=== PATIENT | female | born 1980 | race Caucasian/White ===

== ENCOUNTER → 2017-11-24 14:12 | Outpatient (CLI) | payer OTHER, SELFPAY ==
[2017-11-24 14:58] LABS: Add Manual Diff / Slide Review NO; Basophils Percent Auto 1.1 % (0-2); Eosinophils Percent Auto 3.8 % (2-4); Hematocrit 35.3 % (36-46); Hemoglobin 12.2 g/dL (12.0-16.0); Lymphocytes Percent Auto 34.9 % (25-40); Mean Corpuscular HGB Conc 34.5 % (30-36); Mean Corpuscular Hemoglobin 30.6 PG (26-34); Mean Corpuscular Volume 88.7 fL (80-100); Monocytes Percent Auto 6.7 % (3-14); Neutrophils Absolute Auto 3600 /uL (3000-5900); Neutrophils Percent Auto 53.5 % (50-75); Platelet Count 299 X10^3/uL (150-400); Red Blood Cell Count 3.98 X10^6/uL (4.0-5.2); Red Cell Distribution Width 13.1 % (11.6-14.8); White Blood Cell Count 6.8 X10^3/uL (4.5-11.0)
== END ==
PROVIDERS: Family Provider Registered Nurse Diabetes Educator; Visit Provider Obstetrics & Gynecology
DX: N93.9 Abnormal uterine and vaginal bleeding, unspecified (principal); R10.2 Pelvic and perineal pain
CPT/HCPCS: 36415; 85025; 86850; 86900; 86901

== ENCOUNTER 2017-11-28 06:54 | Inpatient (IN) | payer OTHER, SELFPAY ==
[2017-11-23 09:14] VITALS: BMI 27.8
[2017-11-28] VITALS (15 sets, daily range): BP systolic 100–123; BP diastolic 52–87; PULSE 65–104; RESP 12–20; TEMP 36.2–36.9; O2SAT 96–100; BMI 27.8
[2017-11-28] MEDS: LACTATED RINGERS 1,000 ML 42 ML IV ×2 (07:48→10:40)
--- NOTE | 2017-11-28 07:52 | PM.PREOP ---
Pre-operative Note Interval Note Pre-op Check: History & Physical Reviewed by Physician
[2017-11-28] MEDS: CEFAZOLIN 2 GM/100 ML FROZ.PIGGY IV (08:05)
--- NOTE | 2017-11-28 09:16 | SUR.OPER ---
Lithotomy on padded OR bed. [place] Pad Positioner under torso. Head on pillow, arms padded and tucked at sides. Legs secured in padded yellow fin stirrups.
[2017-11-28] MEDS: BUPIVACAINE 0.25% (PF) 30 ML VIAL INJ (09:27)
[2017-11-28] MEDS: LIDOCAINE 1% W/EPI INJ 20 ML INJ (09:41)
[2017-11-28] MEDS: ACETAMINOPHEN IV 1,000 MG/100 ML VIAL 400 MG IV (09:45)
[2017-11-28] MEDS: METHYLENE BLUE 50 MG/10 ML VIAL 60 MG IV (10:58)
--- NOTE | 2017-11-28 11:56 | PM.GYNOP.1 ---
Operative Date/Time/Diagnoses - Date of procedure: 11/28/17 Time of procedure: 08:00 Pre-op diagnosis: Chronic pelvic pain, abnormal uterine bleeding Post-op diagnosis: other (Chronic pelvic pain, abnormal uterine bleeding, pelvic adhesions) Procedure: Procedures Operation Date: 11/28/17 07:45 Actual Procedures Side Surgeon p Laparoscopic Assisted Vag Hysterectomy with lysis of adhesions Shantelle Casillas MD s Cystoscopy Rigid Shantelle Casillas MD Indications: The patient is a 36-year-old 2 para 2 para 2 female here for laparoscopic-assisted vaginal hysterectomy for definitive surgical management of chronic pelvic pain and menorrhagia. She has been using the Essure for tubal sterilization since September 2013 and had a confirmatory hysterosalpingogram that noted bilateral tubal occlusion. Since the Essure placement, she has noted progressively worsening left lower quadrant pain and worsening menses. Currently pain occurs daily at the left lower quadrant (intensity 3/10) but is worse for several days around ovulation and menses (intensity up to 5/10). She manages pain with Motrin 800 mg b.i.d. and laying down. Menses have become heavier and longer. She has to use 2 tampons and a long super pad on her heaviest days and bleeds for 10 days. In October 2014, she had an episode of severe, prolonged bleeding that required inpatient intravenous iron and medical therapy. However, she denies a history of anemia or need for transfusion in the past. Recent pelvic sonogram was not demonstrative of a source of her pain. Prior to Essure, she reports her cycles are regular and manageable off control since menarche. Additionally, she feels increased moodiness and inability to lose weight despite adequate exercise over the last 3-4 years and wonders if this may also be related to the Essure. She has no history of cervical dysplasia or cervical abnormalities. Surgeon: Shantelle Casillas Editing Computer Publisher: Nikolas Ross Anesthesia Type: General and Local Operative Notes Findings: Exam under anesthesia: The uterus was approximately 8 weeks in size and anteverted. No adnexal masses were palpable. Moderate uterine descent was noted with bimanual exam. Laparoscopic findings: An omental adhesion was noted to the anterior peritoneum just above the level of the umbilicus. There was also an omental adhesion to the left ovary and left pelvic sidewall overlying the left fallopian tube. The bladder was densely adhered to the lower uterine segment. The ovaries were mildly enlarged with several small, approximately 1 cm, simple-appearing cysts. There was an omental adhesion (thin) to the right ovary. There was no endometriosis noted. Cystoscopy at the completion of the case noted a normal appearing bladder with urine efflux from the ureters bilaterally. Closure Type: primary Specimen(s): left tube, right tube, uterus and other (Cervix) Applied: catheter Estimated blood loss (mL): 120 Blood products transfused: none Procedure in detail: The patient was taken to the operating room, where general endotracheal anesthesia was administered without complications. The patient was placed into the low dorsal lithotomy position with her lower extremities in [place] stirrups. Exam under anesthesia was then performed with the findings noted above. Perineum, vagina, and abdomen were then prepped and draped in a sterile fashion. A Scott catheter was then placed. Procedure time-out was then performed. Attention was first turned to the perineum for placement of the uterine manipulator. A sterile bivalve speculum was inserted into the vagina, then the anterior lip of the cervix was grasped with a single-tooth tenaculum. The cervix was then serially dilated using Jason dilators until a ZUMI uterine manipulator could be advanced. The balloon was inflated, then the tenaculum and speculum removed from the vagina. Local anesthetic was then injected infraumbilically using 0.25% Marcaine with epinephrine. A vertical skin incision was then made with a scalpel below the umbilicus measuring approximately 7 mm in length. The abdominal wall was then grasped and tented up while a Veress needle was inserted through the incision. Saline drop test was suggestive of intraperitoneal placement. Carbon dioxide gas insufflation was then performed with appropriate opening pressures noted. After instilling approximately 2 L of carbon dioxide, a 5 mm 0 degree laparoscope within a 5 mm trocar was inserted through the anterior layers of the abdominal wall using Optiview technique. The abdomen and pelvis were visualized with the findings as noted above. The patient was placed into Trendelenburg position for better visualization. A second and third trocar was inserted at the patient's lower quadrants. These were done by first instilling local anesthetic, then incising the skin and inserting a 5 mm trocar under direct visualization using the laparoscopic. An atraumatic grasper was then utilized to manipulate the tissue and improve visualization throughout the pelvis. Attention was first turned to dissection of the omental adhesion. While pulling gentle traction on the omentum, the adhesions were freed from the pelvic sidewall using Bovie cautery and Endo Kim. Any residual bleeding was controlled with Bovie cautery. In a similar fashion, the omentum was freed from the left ovary as well. A band of adhesed omentum just above the umbilicus was cauterized and cut using the PlasmaKinetic. Gentle traction was then applied on the left distal fallopian tube which was pulled medially and superiorly. The left tubo-ovarian pedicle was then cross-clamped, cauterized, and cut using the Olympus PlasmaKinetic, and the left mesosalpinx dissected to separate the left tube from the ovary. The left round ligament was then cross clamped, cauterized, and cut. Residual bleeding was controlled with Bovie cautery there were dense adhesions on this side causing some additional oozing. The anterior leaf of the broad ligament was undermined with the PlasmaKinetic and the left aspect of the bladder flap created using Bovie cautery. Dense adhesions from the bladder were noted at the midline, and initial dissection was performed using gentle traction. The left utero-ovarian pedicle was then cross clamped, cauterized, and cut, freeing the left ovary from the uterus. Some residual para uterine tissue was freed with Bovie cautery and gentle traction, skeletonizing the left uterine vessels. The left uterine vein and artery were then cross clamped, cauterized, and cut, and additional cautery applied as needed to achieve hemostasis. Attention was then turned to the patient's right adnexa. The right fallopian tube was adhered at the mid isthmic portion to the right pelvic sidewall. This was freed with the PlasmaKinetic then the distal fallopian tube was grasped and tented up while the right tubo-ovarian pedicle was cross clamped, cauterized, and cut. This incision was then extended and medially across the right mesosalpinx. The right round ligament was then cross clamped, cauterized, and cut and the right anterior leaf of the broad ligament was undermined with the PlasmaKinetic to create the right side of the bladder flap using Bovie cautery. This incision was extended to the midline until the dense adhesion was encountered. The right utero-ovarian pedicle was cross clamped, cauterized, and cut, freeing the right ovary from the uterus. The right uterine vessels were then skeletonized, cross clamped cauterized, and cut. Additional cautery was applied as needed to achieve hemostasis. The pelvis was then irrigated and suctioned. The dense bladder adhesion at the midline was then dissected down using Bovie cautery with the Endo Kim. Once hemostasis was ensured attention was turned to the perineum for the vaginal portion of the case. Instruments were removed from the abdomen, leaving the trocars in place. The majority of the carbon dioxide gas was allowed to escape. The uterine manipulator was removed. A sterile weighted speculum was placed in the posterior vagina and a Vashon placed in the anterior vagina. The cervix was grasped with double tooth tenaculum, then 1% lidocaine with epinephrine was injected circumferentially for hemostasis. A circumferential incision was then made with Bovie cautery. Using blunt dissection with the security operations center operator's finger the vaginal mucosa was gently pushed back off the cervix better visualizing the plane for the anterior-posterior peritoneal entry. The posterior peritoneum was grasped and incised sharply using Metzenbaum scissors. The midline of the posterior vaginal cuff and peritoneum was then tagged with an 0 Vicryl suture for later identification. The Auvard speculum was then inserted into the posterior peritoneum. The anterior peritoneum was then bluntly entered using push with the security operations center operator's finger and a moistened lap sponge. The Chela was then replaced. The left uterosacral ligament was cross clamped with a Petra clamp then cut and suture ligated with an 0 Vicryl suture in a Petra stitch fashion. This was tagged for later identification. This step was performed on the right uterosacral ligament clamped then cut and suture ligated with an 0 Vicryl suture. The right cardinal and inferior uterine vessels were then cross clamped with the Petra clamp cut and suture ligated with an 0 Vicryl suture. This step was then performed on the patient's left cardinal and uterine vessels as well. The uterus and bilateral fallopian tubes were then removed through the vagina. The pedicles were inspected and noted to be hemostatic. Some residual bleeding at the level of the cuff was controlled with Bovie cautery. The peritoneum was then closed with a pursestring suture of 0 Vicryl, starting anteriorly at the bladder peritoneum including both uterosacral ligaments and driving across the posterior peritoneum. This was tied down the vagina was then irrigated with sterile saline. The vaginal mucosa was then closed with serial [id number] sutures of 0 Vicryl. Given the presence of the dense bladder adhesions, the decision was made to perform a diagnostic cystoscopy to ensure no bladder ureter injury or ureteral injury occurred during the surgery. The Scott catheter balloon was deflated, then the Scott tip removed from the bladder. A 12 degree cystoscope was then placed into the bladder, using normal saline for distention the bladder was fully visualized and no evidence of injury was noted. Methylene blue urine was noted to efflux from the ureteral orifices bilaterally. The cystoscope was then removed and the Scott catheter replaced. A sponge stick was then placed into the vagina, and attention returned to the patient's abdomen for inspection of the vaginal cuff from above. Carbon dioxide gas was then reinflated into the abdomen. The cuff was irrigated and suctioned. Some residual bleeding anterior to the cuff was controlled with a small amount of Bovie cautery. The ovaries and adhesion dissection areas were examined and no residual bleeding was noted. At this point the laparoscopic portion of the procedure was deemed complete. The carbon dioxide gas was allowed to escape and the trocars removed from the abdomen. The trocar sites were then closed with 4-0 Monocryl in a subcuticular fashion. Exofin skin glue was then applied. The sponge-stick was then removed from the vagina. At this point the procedure was deemed complete. Sponge, lap, and needle count were correct x3. The patient was subsequently awakened, extubated, and transferred to the PACU in stable condition. Complications: none Post-operative Condition: stable Disposition: Acute Care Plan for aftercare: Acute then discharge home tomorrow.
[2017-11-28] MEDS: ONDANSETRON 4 MG/2 ML INJ IV ×2 (12:36→21:01)
[2017-11-28] MEDS: LACTATED RINGERS 1,000 ML 100 ML IV ×2 (14:12→23:45)
[2017-11-28] MEDS: MORPHINE 4 MG/ML INJ IV (14:12)
[2017-11-28] MEDS: KETOROLAC 30 MG/ML VIAL IV ×2 (14:19→20:28)
--- NOTE | 2017-11-28 18:29 | PC.NURSE ---
Addendum entered by Dianelys Silva R.N. 11/28/17 22:37: Pt has had some issues with nausea and 300cc emesis, med w/zofran w/food relief. IVF Continue as per orders. Scott cath patent clear, light blue urine Call light w.in reach, bed alarm on for pt safety. Continue w/plan of care. Original Note: Pt resting quietly at this time. Denies discomfort. durobound dsg CDI. No flow on sofiya pad. IVF infusing via pump asper orders. Ambulated in hallway with staff w/o incidense. Call light w/in reach.
[2017-11-29] MEDS: METOCLOPRAMIDE 10 MG/2 ML INJ IV (01:48)
[2017-11-29 05:30] VITALS: BP 114/62; PULSE 93; RESP 16; TEMP 37.2; O2SAT 98
[2017-11-29 05:54] VITALS: RESP 14
[2017-11-29 06:04] LABS: Add Manual Diff / Slide Review NO; Basophils Percent Auto 0.1 % (0-2); Eosinophils Percent Auto 0.1 % (2-4); Hematocrit 32.4 % (36-46); Lymphocytes Percent Auto 9.5 % (25-40); Mean Corpuscular HGB Conc 33.9 % (30-36); Mean Corpuscular Hemoglobin 30.1 PG (26-34); Mean Corpuscular Volume 88.8 fL (80-100); Monocytes Percent Auto 6.7 % (3-14); Neutrophils Absolute Auto 14600 /uL (3000-5900); Neutrophils Percent Auto 83.6 % (50-75); Platelet Count 279 X10^3/uL (150-400); Red Blood Cell Count 3.65 X10^6/uL (4.0-5.2); Red Cell Distribution Width 13.2 % (11.6-14.8); White Blood Cell Count 17.4 X10^3/uL (4.5-11.0)
[2017-11-29 06:07] LABS: BUN Creatinine Ratio 17.1 (6-22); Blood Urea Nitrogen 12 mg/dL (7-17); Calcium 8.9 mg/dL (8.4-10.2); Carbon Dioxide 26 mmol/L (22-32); Chloride 104 mmol/L (98-107); Estimated Glomerular Filt Rate > 60.0 mL/min (>60); Glucose 107 mg/dL (70-100); HEMOLYSIS < 15 (0-50); Potassium 4.4 mmol/L (3.4-5.1); Sodium 139 mmol/L (137-145)
[2017-11-29 07:00] VITALS: BP 106/59; PULSE 95; RESP 16; TEMP 37.2; O2SAT 100
[2017-11-29] MEDS: ACETAMINOPHEN 325 MG TABLET 650 MG PO ×2 (10:04→16:40)
[2017-11-29] MEDS: DOCUSATE 250 MG CAPSULE PO (10:04)
--- NOTE | 2017-11-29 10:37 | CM.DANOTE ---
DCP/Assessment: Reviewed chart. Patient is a 37yr old female admitted to [facility] for Hysterectomy. Procedure performed on 11-28-[address] Casillas. Primary payor is 1)Fracisco Guerrero. PCP is KATELIN Valera in [place]. Met with patient explained CM/SW role. Patient alert and oriented, resting in bed at time of visit. Patient reports that she hopes to go home today. Patient resides with family in [place]. Currently patient's spouse deployed but patient has supportive family and her sister/Kiley will be staying with her and helping with her children during her recovery. Patient does not anticipate any d/c planning needs. Patient completely I in all ADL's. 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 Patient reports that she has been up moving independently in room. P: Home when stable. CM team name/number left on white board if patient has questions. NANI Webber
[2017-11-29 12:00] VITALS: BP 120/64; PULSE 80; RESP 18; TEMP 36.6; O2SAT 100
[2017-11-29 15:00] VITALS: BP 116/76; PULSE 83; RESP 16; TEMP 36.7; O2SAT 99
--- NOTE | 2017-11-29 15:34 | PC.NURSE ---
Shift summary: Alert and oriented X3. Nausea/vomiting has NOT been an issue today. She tolerated her meals well. IV saline locked this morning. Voiding WNL since delcid kranthi'd at 0900, urine initially was pink-tinged but is yellow now. No vaginal bleeding. Minimal pain, has Tylenol PRN. Up ambulating halls frequently, steady on feet. Waiting on Dr Casillas to make rounds, patient looking forward to possible d/c this evening.
--- NOTE | 2017-11-29 17:50 | P.PN_ITS ---
Subjective Date Patient Seen: 11/29/17 Time Patient Seen: 17:45 Interval history: Overnight, the patient had issues with moderate to severe nausea and vomiting. This finally resolved at approximately 2:00 a.m. following a dose of IV Reglan. Scott catheter was removed at 0 9 o'clock this morning. She has since been her due to void without any problems. She reports she is tolerating a regular diet without any nausea or vomiting and she is passing flatus. Pain is well controlled with IV Toradol and oral acetaminophen only. She has not required any narcotic pain medications-either orally or IV. She has been ambulating in the room without lightheadedness or dizziness. She is feeling ready for discharge home today. Exam Vital Signs (past 8 hours): - 11/29/17 12:00 11/29/17 15:00 Temperature 98 F 98.1 F Pulse Rate 80 83 Respiratory Rate 18 16 Blood Pressure 120/64 116/76 Pulse Oximetry 100 99 Oxygen Delivery Method Room Air Oxygen Flow Rate 0 Narrative Exam Narrative: General: The patient is awake and alert, sitting up in bed in no apparent distress. Lungs: Clear to auscultation with no wheezes or crackles. Heart: Regular rate and rhythm with no murmurs, rubs, or gallops. Abdomen: Soft and appropriately tender. Bowel sounds heard throughout. Minimal distention noted. Incisions: Laparoscopic incisions examined x3. Minimal bruising noted at the left lower quadrant incision. Skin edges are approximating well. Skin adhesive remains intact. There is no erythema, discharge, or separation. Extremities: Warm and well perfused with no edema. Objective Labs Result Diagrams: 11/29/17 05:09 11/29/17 05:09 Labs: Laboratory Results - last 24 hr 11/29/17 11/29/17 05:09 05:09 WBC 17.4 H RBC 3.65 L Hgb 11.0 L Hct 32.4 L MCV 88.8 MCH 30.1 MCHC 33.9 RDW 13.2 Plt Count 279 Neut % (Auto) 83.6 H Lymph % (Auto) 9.5 L [place] % (Auto) 6.7 Eos % (Auto) 0.1 L Baso % (Auto) 0.1 Neut # (Auto) 70570 H Sodium 139 Potassium 4.4 Chloride 104 Carbon Dioxide 26 BUN 12 Creatinine 0.70 Estimated GFR > 60.0 BUN/Creatinine Ratio 17.1 Glucose 107 H Calcium 8.9 Assessment & Plan Post-op Postoperative Procedures Operation Date: 11/28/17 07:45 Actual Procedures Side Surgeon p Laparoscopic Assisted Vag Hysterectomy with lysis of adhesions Shantelle Casillas MD s Cystoscopy Rigid Shantelle Casillas MD Postoperative day: 1 Postoperative status: doing well Postoperative plan: routine post-op care and discharge Time Spent With Patient less than 15 minutes Quality VTE Deep Vein Thrombosis/Pulmonary Embolism Present on Admission: No
== END 2017-11-29 18:30 | disposition home or self-care (01) | DRG 743 ==
PROVIDERS: Admitting Provider Obstetrics & Gynecology; Family Provider Registered Nurse Diabetes Educator; Visit Provider Obstetrics & Gynecology
PROC: 0UT9FZZ Resection of Uterus, Via Natural or Artificial Opening With Percutaneous Endoscopic Assistance (ICD-10-PCS; principal; 2017-11-28 07:45)
PROC: 0TJB8ZZ Inspection of Bladder, Via Natural or Artificial Opening Endoscopic (ICD-10-PCS; CPT 52000; 2017-11-28 07:45)
DX: N92.0 Excessive and frequent menstruation with regular cycle (principal); R10.2 Pelvic and perineal pain; R11.2 Nausea with vomiting, unspecified; N32.89 Other specified disorders of bladder
CPT/HCPCS: 36415; 80048; 85025; J0131; J0330; J0690; J1100; J1885; J2250; J2270; J2405; J2704; J2765; J3010; Q9968